=== PATIENT | male | born 1990 | race Two or more races ===

== ENCOUNTER 2025-05-28 18:38 | Emergency (ER) | payer SELFPAY ==
[2025-05-28 19:32] VITALS: BP 117/80; PULSE 96; RESP 18; TEMP 36.8; O2SAT 96
--- NOTE | 2025-05-28 19:35 | XR_ITS ---
Examination: Hand, right 2 views Examination: AP lateral right hand and 2 views Date and time: May 28, 2025, 194 hours INDICATIONS: Laceration to the hand today, hand pain. FINDINGS: No acute fracture No dislocation. No foreign body IMPRESSION: No foreign body
[2025-05-28] MEDS: IBUPROFEN TAB 400 MG TABLET 800 MG PO (20:47)
[2025-05-28] MEDS: DIPHTH,PERTUSS(ACELL),TET VAC 0.5 ML SYR- ADULT IMi (20:51)
--- NOTE | 2025-05-29 05:23 | EDNOTE_ITS ---
ED Wound/Laceration-RME/HPI General Chief Complaint: Wound/Laceration Stated Complaint: LACERATION TO PALM OF RIGHT HAND FROM GLASS Time Seen by Provider: 05/28/25 19:10 Arrival date/time: 05/28/25 18:38 This is a case of 34-year-old male with no medical history came in in the emergency room due to laceration on the right hand history of present illness started 1 hour prior to arrival in the emergency room when patient was putting out the trash accidentally of piece of glass cut his right palm patient tetanus shot is not up-to-date Limitations: no limitations Related Data Previous Rx's ?Medication ?Instructions ?Recorded cephalexin 500 mg capsule 500 mg PO Q8H #30 caps 05/28 ibuprofen 800 mg tablet 800 mg PO Q8H PRN pain #20 t abs 05/28/25 mupirocin 2 % topical ointment 1 applic topical BID #2 2 grams 05/28/25 (Centany) Allergies Allergy/AdvReac Type Severity Reaction Status Date / Time No Known Allergies Allergy Mild Uncoded 09/26/07 07:33 Review of Systems Review of Systems Systems Reviewed: All systems reviewed, normal except as documented Constitutional Constitutional: Reports system reviewed and no additional complaints, except as documented and Reports as per HPI Cardiovascular Cardiovascular: Reports system reviewed and no additional complaints, except as documented and Reports as per HPI Respiratory Respiratory: Reports system reviewed and no additional complaints, except as documented and Reports as per HPI Gastrointestinal Gastrointestinal: Reports system reviewed and no additional complaints, except as documented and Reports as per HPI Musculoskeletal Musculoskeletal: Reports system reviewed and no additional complaints, except as documented and Reports as per HPI Neurologic Neurologic: Reports system reviewed and no additional complaints, except as documented and Reports as per HPI Past Medical History Social History SMOKING STATUS: Current some day smoker ED Exam General Limitations: Present no limitations General appearance: Present alert, in no apparent distress and other (Patient is awake alert oriented not in distress nontoxic looking well-hydrated well- nourished) Head Head exam: Present atraumatic, normocephalic and normal inspection Eye Eye exam: Present normal appearance, PERRL and EOMI ENT ENT exam: Present normal exam, normal oropharynx and mucous membranes moist Neck Neck exam: Present normal inspection, full ROM and trachea midline; Absent tenderness, meningismus, lymphadenopathy or thyromegaly Chest Chest inspection: Present normal inspection and symmetric chest wall rise; Absent tenderness Respiratory Respiratory exam: Present normal lung sounds bilaterally; Absent respiratory distress, wheezes, stridor, accessory muscle use or prolonged expiratory phase Cardiovascular Cardiovascular exam: Present regular rate, normal rhythm and normal heart sounds; Absent bradycardia, tachycardia, irregular rhythm, systolic murmur or diastolic murmur Abdominal Exam Abdominal exam: Present soft and normal bowel sounds; Absent distention, tenderness, guarding, rebound, rigidity, diminished bowel sounds, hyperactive bowel sounds, hypoactive bowel sounds or organomegaly Extremities Exam Extremities exam: Present normal inspection and full ROM Expanded Upper Extremity Exam Hand exam: Present laceration (Noted 2 cm laceration linear no foreign body no bone or tendon injury minimal bleeding no abscess no cellulitis ROM intact neurovascular intact); Absent tenderness, swelling or abrasion Back Exam Back exam: Present normal inspection and full ROM Neurological Exam Neurological exam: Present alert, oriented X3, CN II-XII intact, normal gait and reflexes normal; Absent motor sensory deficit Psychiatric Psychiatric exam: Present normal affect and normal mood Skin Skin exam: Present warm, dry, intact, normal color and other (Laceration right palmar) Course Quality Measures none Orders Category Date Time Status XR hand RT 2V Stat Exams 05/28/25 19:35 Completed Ibuprofen Tab [Motrin Tab] Med 05/28/25 20:24 Discontinued 800 mg PO X1 ONE TET,DIP/PERT AC (Adult)-Tdap [Boostrix Adult (Tdap) Med 05/28/25 20:24 Discontinued Vacc] 0.5 ml IMI .ONCE ONE cephALEXin [Keflex] Med 05/28/25 20:24 Discontinued 1,000 mg PO X1 ONE Vital Signs Vital signs: Vital Signs Temperature 98.3 F 05/28/25 19:32 Pulse Rate 96 05/28/25 19:32 Respiratory Rate 18 05/28/25 19:32 Blood Pressure 117/80 05/28/25 19:32 Pulse Oximetry (%) 96 05/28/25 19:32 Oxygen Delivery Method Room Air 05/28/25 19:32 Oxygen saturation is 96% in room PROCEDURES: Laceration Laceration 1: Site: other (Right palmar) Side (If applicable): right (Right palmar) Size (cm): 2 Description: linear Depth: simple, single layer Local Anesthetic: lidocaine 1% Amount of anesthesia used (mL): 3 Pre-repair: wound explored, irrigated extensively and deep structures intact Skin layer closed with: nylon Suture size (cm): 4-0 Number of sutures: 3 Technique: simple, interrupted Wound / Laceration MDM Narrative MDM Narrative:: This is a case of 34-year-old male with no medical history came in in the emergency room due to laceration on the right hand history of present illness started 1 hour prior to arrival in the emergency room when patient was putting out the trash accidentally of piece of glass cut his right palm patient tetanus shot is not up-to-date patient is awake alert oriented not in distress nontoxic looking well-hydrated well-nourished patient noted to have 2 cm laceration on the right linear minimal bleeding no foreign body no bone or tendon injury no abscess no cellulitis ROM intact neurovascular intact x-ray showed no foreign body laceration repair was performed patient tolerated well the procedure procedure done by [facility] protocol and via sterile technique patient will follow-up with PCP in 2 days for reevaluation and 10 days for removal of suture tetanus shot was given they were advised for any signs and symptoms of infection worsening symptoms or any emergent concern return precaution in the ER was advised patient was prescribed with cephalexin and mupirocin to prevent i nfection Patient was discharged with comfortable condition walking with stable gait. Patient verbalized no further complains explained diagnosis and answered patient question. Patient is comfortable with the proposed management plan including the need to follow up with his/her primary care physician and any specialist if applicable Discussed patient for any urgent condition or worsening sx, He/She needed to go to emergency room immediately or call 911. Patient acknowledge the responsibility to follow up as instructed and to monitor her/his symptoms. For any persistence of the symptoms for more than 3-5 days return precaution advised. Discussed the result of the test and was given printed discharge instruction Patient data External records reviewed:: [facility] previous records Clinical information provided by:: patient Social determinants that could affect healthcare access:: none Patient has the following chronic illnesses:: None How is presenting disease/condition affected by chronic disease/condition?: no chronic disease Evaluation data The following diagnostics were reviewed and interpreted by me:: radiology exam(s) Lab and/or radiology exams considered but not ordered:: Reviewed Interpretation Summary: Reviewed Medications / Prescriptions Medications or Prescriptions considered but not ordered:: Given Medication administrations:: Medication Administration History Discontinued Medications Cephalexin HCl (Cephalexin 250 Mg Capsule) 1,000 mg PO X1 ONE Stop: 05/28/25 20:25 Last Admin: 05/28/25 20:47 Dose: 1,000 mg Documented By: Diphtheria/Tetanus/Acell Pertussis (Diphth,Pertuss(Acell),Tet Vac 0.5 Ml Syr- Adult) 0.5 ml IMi .ONCE ONE Stop: 05/28/25 20:25 Last Admin: 05/28/25 20:51 Dose: 0.5 ml Documented By: Ibuprofen (Ibuprofen Tab 400 Mg Tablet) 800 mg PO X1 ONE Stop: 05/28/25 20:25 Last Admin: 05/28/25 20:47 Dose: 800 mg Documented By: Given Consultations Consultation(s) initiated? (list below): No Diagnosis Wound Differential Diagnosis: laceration Most likely diagnosis given after review of the tests above:: Palmar laceration Admission Indicated Admission indicated?: not indicated Explain why admission is indicated or not indicated:: Not indicated Admission Request Was there a request for admission?: No Admission Attestation Admission request attestation: Not indicated Disposition Plan Disposition Plan: Discharge Discharge Attestation Discharge Attestation: The patient and all family members were given an opportunity to ask questions and understood the discharge instructions. Discharge instructions specifically effects, indications for sooner follow up or return to the emergency department, and the expected course of current diagnosis. Patient condition: Stable Discharge Plan Plan Patient Disposition: HOME (Self Care) Patient condition on transfer: Stable Prescriptions/Referrals Prescriptions/Med Rec: New cephalexin 500 mg capsule 500 mg PO Q8H Qty: 30 0RF ibuprofen 800 mg tablet 800 mg PO Q8H PRN (Reason: pain) Qty: 20 0RF mupirocin [Centany] 2 % ointment 1 applic topical BID Qty: 22 0RF Problem List Clinical Impression: Hand laceration Patient/Caregiver Discharge Instructions Education Materials: Suture Care, ED Laceration, Hand: All Closures Additional Instructions: Follow-up with your primary care physician in 2 days for reevaluation and wound check and 10 days for removal of suture for any worsening symptoms or any emergent concern or any signs and symptoms of infection redness swelling discharge from the wound pain fever chills return to the emergency room immediately or call 911 keep the wound clean and dry take your medication antibiotic and finish the course of antibiotic Print Language: Albanian Stand Alone Forms: [employer]., Work/School Release, Patient Portal Info Letter PA/[employer] Supervising Physician PA/[employer] Supervising Physician: Dr. Barbour
== END 2025-05-28 22:12 | disposition home or self-care (01) ==
LOC: SERX 21:12
PROVIDERS: Emergency Provider Emergency Medicine; PCP Physician Assistant
DX: S61.411A Laceration without foreign body of right hand, initial encounter (principal); W25.XXXA Contact with sharp glass, initial encounter
CPT/HCPCS: 12002; 73120; 90471; 90715; 99283; A9270